=== PATIENT | male | born 1950 | race Caucasian/White ===

== ENCOUNTER 2019-12-07 11:32 | Outpatient (CLI) | payer MEDICARE, OTHER, SELFPAY ==
--- NOTE | 2019-12-07 11:42 | XRR_ITS ---
PROCEDURE INFORMATION: Exam: XR Chest, 2 Views Exam date and time: 12/07/2019 11:58 AM Age: 69 years old Clinical indication: Shortness of breath; Patient HX: Left sided pain, hard to breath x 1 week; Additional info: Astmatic bronchitis, HX of covid 1 month ago TECHNIQUE: Imaging protocol: XR of the chest Views: 2 views. COMPARISON: CR Chest 1 [place] [id number] 12/24/2018 3:04 AM FINDINGS: Lungs: There is interstitial fibrosis or subsegmental atelectasis in the left base. The right lung is grossly clear. There is no pneumothorax. Pleural space: There is thickening of the pleural density along the left lower lateral chest wall. This may represent pleural fibrosis or loculated effusion. Heart/Mediastinum: Unremarkable. No cardiomegaly. Bones/joints: Unremarkable. 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
== END 2019-12-07 11:33 | disposition home or self-care (01) ==
LOC: RAD 11:38
PROVIDERS: PCP Nurse Practitioner Family; Visit Provider Nurse Practitioner Family
DX: J45.909 Unspecified asthma, uncomplicated (principal); U07.1 COVID-19
CPT/HCPCS: 71046